=== PATIENT | female | born 1985 ===

== ENCOUNTER 2016-09-30 11:43 | Emergency (ER) | payer OTHER ==
[2016-09-30 11:51] VITALS: BP 106/60; PULSE 79; RESP 17; TEMP 97; O2SAT 99
--- NOTE | 2016-09-30 12:08 | ED PDOC ---
Lower Extremity Pain/Injury Time Seen by Provider: 09/30/16 12:03 Chief Complaint (Nursing): Lower Extremity Problem/Injury Chief Complaint (Provider): R toe pain History Per: Patient Additional Complaint(s): Pt. states for the past 3-4 weeks she's had a progressively worsening pain and swelling to the R pinky toe. Pt. states she has been unable to put on her shoes due to the swelling and that she also has pain with walking. Denies trauma, fever, discharge, numbness, tingling. Past Medical History Reviewed: Historical Data, Nursing Documentation, Vital Signs Vital Signs: Last Vital Signs Temp 97.0 F L 09/30/16 11:50 Pulse 79 09/30/16 11:50 Resp 17 09/30/16 11:50 BP 106/60 09/30/16 11:50 Pulse Ox 99 09/30/16 11:50 - Family History Family History: States: No Known Family Hx - Allergies Allergies/Adverse Reactions: Allergies Allergy/AdvReac Type Severity Reaction Status Date / Time No Known Allergies Allergy Verified 09/30/16 11:52 Review of Systems ROS Statement: Except As Marked, All Systems Reviewed And Found Negative Physical Exam - Physical Exam Appears: Positive for: Well, Non-toxic, No Acute Distress Skin: Positive for: Normal Color, Warm. Negative for: Rash Pulses-Dorsalis Pedis (R): 2+ Extremity: Positive for: Other (R 5th toe with mild swelling and fluctuance without erythema or discharge or tenderness; R 5th toe with cap refill < 2 seconds) Neurologic/Psych: Positive for: Alert, Oriented - ECG O2 Sat by Pulse Oximetry: 99 - Progress ED Course And Treament: Pt. evaluated by Christine podiatry resident, who debrided hammertoe and arranged f/ u for pt. with podiatry clinic in 1 week. Disposition - Clinical Impression Clinical Impression: Hammer toe - Patient ED Disposition Is Patient to be Admitted: No - Disposition Referrals: [facility] [Provider Group] Disposition: Routine/Home Disposition Time: 13:10 Condition: STABLE Additional Instructions: Follow up with [facility] pod[facility]ry clinic in 1 week without fail. Instructions: Adri (ED) Print Language: MALTESE
--- NOTE | 2016-09-30 12:38 | CP.PCM.CON ---
History of Present Illness - History of Present Illness History of Present Illness: 30 year old female with no PMHx presents to ED for pain in right 5th digit and right ankle. She states that she has had the pain in her right 5th digit for 3 months. She had previously seen a DrAlejandra who told her to elevate her foot, but had no relief. She admits to soaking her foot, also with no relief. She states it is painful in certain shoes. She also complaints that she twisted her ankle yesterday and has some pain. Denies n/v/f/c/sob/cp. [employer]zeri Interpretor Lola Hayes [id number] Past Patient History - Infectious Disease Hx of Infectious Diseases: None - Past Social History Smoking Status: Never Smoked - PSYCHIATRIC Hx Substance Use: No - SURGICAL HISTORY Hx Surgeries: No - ANESTHESIA Hx Anesthesia: No Meds Allergies/Adverse Reactions: Allergies Allergy/AdvReac Type Severity Reaction Status Date / Time No Known Allergies Allergy Verified 09/30/16 11:52 Physical Exam - Constitutional Appears: Well, Non-toxic, No Acute Distress - Extremities Exam Additional comments: Vasc:DP and PT pulses palpable 2/4 b/l. CFT < 3 seconds to all digits b/l. Mild non-pitting edema noted to right foot and ankle. Neuro:Gross sensation intact b/l. Derm: Hyperkeratotic lesion noted over dorsal aspect of right 5th digit. No open lesions, no drainage, no erythema, no malodor, no discharge, no fluctuance noted. Mild edema noted to right 5th digit. Ortho:Pain on palpation to right CFL, and ATFL. Pain on palpation to right 5th digit. Contracture noted to 5th digit b/l. - Neurological Exam Neurological exam: Alert, Oriented x3 - Psychiatric Exam Psychiatric exam: Normal Affect, Normal Mood Results - Vital Signs Recent Vital Signs: Last Vital Signs Temp 97.0 F L 09/30/16 11:50 Pulse 79 09/30/16 11:50 Resp 17 09/30/16 11:50 BP 106/60 09/30/16 11:50 Pulse Ox 99 09/30/16 12:08 Assessment & Plan - Assessment and Plan (Free Text) Assessment: 30 year old female with right 5th digit hammertoe with pain, and right ankle sprain Plan: Patient examined and evaluated Discussed in detail with attending, Dr. Caldera Chart and vitals reviewed Hyperkeratic tissue over 5th digit was excisionally debrided with #15 blade to healthy skin, without incident Right foot and ankle wrapped with STEVE Patient offered surgical shoe to walk in, patient refused surgical shoe Patient to follow up in Podiatry clinic next week, patient to call to schedule an appointment
== END 2016-09-30 13:29 | disposition home or self-care (01) ==
LOC: H.ER 11:43
DX: M20.41 Other hammer toe(s) (acquired), right foot (principal)

== ENCOUNTER 2016-11-15 15:01 | Observation (INO) | payer OTHER ==
[2016-11-15 15:10] VITALS: BP 99/65; PULSE 50; RESP 18; TEMP 98.4; O2SAT 100
[2016-11-15] MEDS ORDERED: Sodium Chloride 0.9% 1,000 ML IV STA (16:51)
[2016-11-15] MEDS ORDERED: Iohexol 240 (50 ml) PO STA (16:51)
[2016-11-15] MEDS ORDERED: Iohexol 240 (50 ml) ONE (17:09)
--- NOTE | 2016-11-15 17:10 | ED PDOC ---
HPI: Abdomen Time Seen by Provider: 11/15/16 16:23 Chief Complaint (Nursing): GI Problem Chief Complaint (Provider): Abdominal Pain History Per: Patient History/Exam Limitations: no limitations Onset/Duration Of Symptoms: Days (2 days) Outside of [place] travel?: No Current Symptoms Are (Timing): Still Present Severity: Moderate Location Of Pain/Discomfort: LLQ Associated Symptoms: Vomiting (3 episodes), Other (headache; denies photophobia , vision changes, neck stiffness, vaginal bleeding/discharge). denies: Fever, Diarrhea, Constipation, Urinary Symptoms (dysuria, hematuria, urinary frequency/ retention) Additional Complaint(s): Daniela De Anda is a 30 year old female, with no pertinent past medical history, who presents to the emergency department with complaints of abdominal pain, inclusive of 3 episodes of vomiting, that the patient has been experiencing for 2 days. Advil was taken last night to alleviate her pain, providing mild relief. Associated headache is currently present; however, patient states that it is not the worst of her life. Denies a fever, diarrhea, constipation, photophobia, vision changes, neck stiffness, dysuria, hematuria, urinary frequency/retention, or vaginal bleeding/discharge. Of note, patient's last known menstrual period was on 11/10/16. PMD: none specified Abnormal Vaginal Bleeding: No Last Menstral Period: 11/10/16 Past Medical History Reviewed: Historical Data, Nursing Documentation, Vital Signs Vital Signs: Last Vital Signs Temp 98.4 F 11/15/16 15:07 Pulse 50 L 11/15/16 15:07 Resp 18 11/15/16 15:07 BP 99/65 L 11/15/16 15:07 Pulse Ox 100 11/15/16 22:37 - Medical History PMH: No Chronic Diseases - Surgical History Surgical History: - Family History Family History: States: No Known Family Hx - Social History Current smoker - smoking cessation education provided: No Ex-Smoker (has not smoked in the last 12 months): No Alcohol: None Drugs: Denies - Home Medications Home Medications: Ambulatory Orders Medication Instructions Recorded Famotidine [Pepcid] 20 mg PO Q12 #14 tab 11/15/16 Ondansetron ODT [Zofran ODT] 4 mg PO Q6 PRN #16 odt 11/15/16 - Allergies Allergies/Adverse Reactions: Allergies Allergy/AdvReac Type Severity Reaction Status Date / Time No Known Allergies Allergy Verified 09/30/16 11:52 Review of Systems ROS Statement: Except As Marked, All Systems Reviewed And Found Negative Constitutional: Negative for: Fever Eyes: Negative for: Vision Change, Other (photophobia) Gastrointestinal: Positive for: Vomiting (3 episodes), Abdominal Pain. Negative for: Diarrhea, Constipation Genitourinary Female: Negative for: Dysuria, Frequency, Hematuria, Vaginal Discharge, Vaginal Bleeding, Other (urinary retention) Musculoskeletal: Negative for: Neck Pain (stiffness) Neurological: Positive for: Headache Physical Exam - Reviewed Nursing Documentation Reviewed: Yes Vital Signs Reviewed: Yes - Physical Exam Appears: Positive for: Non-toxic, No Acute Distress Head Exam: Positive for: ATRAUMATIC, NORMOCEPHALIC Skin: Positive for: Normal Color, Warm, DRY Eye Exam: Positive for: EOMI, Normal appearance, PERRL Neck: Positive for: Normal, Painless ROM, Supple Cardiovascular/Chest: Positive for: Regular Rate, Rhythm. Negative for: Murmur Respiratory: Positive for: Normal Breath Sounds. Negative for: Wheezing, Respiratory Distress Gastrointestinal/Abdominal: Positive for: Normal Exam, Soft, Tenderness ( generalized tenderness localizted to LLQ). Negative for: Guarding, Rebound Back: Positive for: Normal Inspection. Negative for: L CVA Tenderness, R CVA Tenderness Neurologic/Psych: Positive for: Alert, Oriented. Negative for: Motor/Sensory Deficits - Laboratory Results Result Diagrams: 11/15/16 17:30 11/15/16 17:30 - ECG O2 Sat by Pulse Oximetry: 100 (RA) Pulse Ox Interpretation: Normal Medical Decision Making Medical Decision Makin:23 Initial Impression: Abdominal pain Differential Diagnoses include, but are not limited to, appendicitis, an ovarian cyst, and a small bowel obstruction. Initial Plan: * CT Abd Pelvis w/ PO & IV Contrast * Transvaginal Ultrasound * Complete Blood Count * Comprehensive Metabolic Panel * Urine Dip * Urine * Urinalysis * Morphine 2 mg IV * Sodium Chloride 0.9% 1,000 ml IV at 1,000 mls/hr * Iohexol 50 ml PO * Zofran 4 mg IV * ED Observation * Reevaluation 16:52 Patient will be placed within ED Observation secondary to time-extensive ED workup. Pending CT Abd Pelvis and labs. See Observation note for further updates. 18:22 Patient is drinking contrast, awake, alert, oriented (x3), and comfortable. Scribe Attestation: Documented by Johnathan Mcelroy, acting as a scribe for Natasha Candelario MD. Provider Scribe Attestation: All medical record entries made by the Scribe were at my direction and personally dictated by me. I have reviewed the chart and agree that the record accurately reflects my personal performance of the history, physical exam, medical decision making, and the department course for this patient. I have also personally directed, reviewed, and agree with the discharge instructions and disposition. ED OBSERVATION Discharge: Yes Date of observation admission: 11/15/16 Time of observation admission: 16:52 - Observation admission statement Patient is being placed in observation because:: Patient will be placed within ED Observation secondary to time-extensive ED workup. - Goals of Observation Goals of observation are:: Pending CT Abd Pelvis and labs. Disposition - Clinical Impression Clinical Impression: Abdominal pain - Disposition Disposition: Transfer of Care Disposition Time: 19:00 Condition: STABLE Patient Signed Over To: Jose Collado Handoff Comments: Pending CT and ultrasound.
[2016-11-15 17:40] LABS: RBC URINE 268 /hpf (0-3); URINE BACTERIA RARE (<OCC); URINE BILIRUBIN NEGATIVE (NEGATIVE); URINE BLOOD LARGE (NEGATIVE); URINE COLOR STRAW (YELLOW); URINE GLUCOSE (UA) NEG (Normal); URINE KETONE NEGATIVE (NEGATIVE); URINE LEUKOCYTE ESTERASE SMALL Leu/uL (Negative); URINE PROTEIN NEGATIVE (NEGATIVE); URINE UROBILINOGEN 0.2-1.0 mg/dL (0.2-1.0); WBC URINE 4 /hpf (0-5)
[2016-11-15 17:43] LABS: BASO % 0.2 % (0.0-2.0); EOS % 0.1 % (0.0-4.0); HEMATOCRIT 34.9 % (34.0-47.0); LYMPH % 20.8 % (20.0-40.0); MEAN CELL VOLUME 82.1 fl (81.0-99.0); MEAN CORPUSCULAR HEMOGLOBIN 26.5 pg (27.0-31.0); MEAN CORPUSCULAR HGB CONC 32.3 g/dL (33.0-37.0); MEAN PLATELET VOLUME 8.7 fl (7.2-11.7); MONO # 0.3 K/uL (0.0-0.8); MONO % 2.7 % (0.0-10.0); NEUT # 7.5 K/uL (1.8-7.0); NEUT % 76.2 % (50.0-75.0); WHITE BLOOD COUNT 9.8 K/uL (4.8-10.8)
[2016-11-15 18:07] LABS: ALB/GLOB RATIO 1.2 (1.0-2.1); ALKALINE PHOSPHATASE 65 U/L (38-126); ALT/SGPT 21 U/L (9-52); AST/SGOT 21 U/L (14-36); BILIRUBIN,TOTAL 0.7 mg/dl (0.2-1.3); BLOOD UREA NITROGEN 7 mg/dl (7-17); CALCIUM 9.3 mg/dL (8.4-10.2); CARBON DIOXIDE 23 mmol/L (22-30); CHLORIDE 104 mmol/L (98-107); GFR AFRICAN-AMERICAN > 60; GLUCOSE,RANDOM 108 mg/dL (65-105); POTASSIUM 3.8 MMOL/L (3.6-5.0); SODIUM 138 mmol/l (132-148); TOTAL PROTEIN 7.9 G/DL (6.3-8.2)
[2016-11-15] MEDS ORDERED: Iohexol 300 50 ML ONE (19:23)
[2016-11-15] MEDS ORDERED: Sodium Chloride 0.9% 50 ML IV ONE (19:24)
--- NOTE | 2016-11-15 19:25 | ED PDOC ---
- Laboratory Results Result Diagrams: 11/15/16 17:30 11/15/16 17:30 - ECG O2 Sat by Pulse Oximetry: 100 (RA) Pulse Ox Interpretation: Normal - CT Scan/US CT Abd Pelvis Other Rad Studies (CT/US): Interpreted By Me, Read By Radiologist, Radiology Report Reviewed Transvaginal US Other Rad Studies (CT/US): Interpreted By Me, Read By Radiologist, Radiology Report Reviewed Medical Decision Making Medical Decision Makin:00 Patient transferred over to provider from Natasha Candelario MD. Pending CT Abd Pelvis and Transvaginal Ultrasound. 20:24 CT Abd Pelvis Results FINDINGS: Artifacts: Motion artifact degrades image quality. Lower thorax: Heart size is normal. The lung bases are clear. ABDOMEN: Liver: There is fatty infiltration of the liver. Gallbladder and bile ducts: Unremarkable. Pancreas: Unremarkable. Spleen: Unremarkable. Adrenals: Unremarkable. Kidneys and ureters: Unremarkable. Stomach and bowel: Stomach is almost empty. Rotation is normal. There is no obstruction. Terminal ileum is unremarkable. Appendix is unremarkable. Streak and motion limited evaluation of the colon. There is minimal diverticulosis. Appendix: See stomach and bowel. PELVIS: Bladder: Unremarkable. Reproductive: Uterus and adnexal structures are unremarkable. ABDOMEN and PELVIS: Intraperitoneal space: There is trace free fluid in the pelvis. There is no free air. Bones/joints: There are no acute osseous abnormalities. There is mild L5-S1 disc bulging. Soft tissues: There is a small fat containing umbilical hernia. Vasculature: Vascular structures are unremarkable. Lymph nodes: There is no pathologic adenopathy. IMPRESSION: Fatty liver, no acute solid visceral abnormality; no CT findings of appendicitis or diverticulitis; trace fluid in the pelvis most likely physiologic. 20:52 Patient is resting comfortably with stable vital signs. 20:58 Transvaginal Ultrasound Results FINDINGS: Uterus: Uterus measures approximately 6.7 x 3 x 4.6 cm. Endometrium measures approximately 3.4 mm in width. Fluid: There is trace amount of free fluid. Left ovary: Left ovary measures approximately 2.87 x 1.58 x 1.48 cm. There are multiple small follicles. There is intraovarian blood flow. Right ovary: Right ovary measures approximately 2.81 x 1.58 x 2.28 cm.There are multiple small follicles. There is intraovarian blood flow. IMPRESSION: Normal transvaginal pelvic ultrasound, no torsion; trace free fluid is most likely physiologic. 22:29 Upon provider reevaluation, patient shows improvement in her symptoms, is medically stable, and requires no further treatment in the emergency department at this time. Patient will be discharged home with a prescription for Pepcid and Zofran ODT. Counseling was provided and all questions were answered regarding diagnosis and advised for followup with primary medical doctor in 1-2 days. Patient is in agreement with provider's discharge plan and was prompted to return if their symptoms persist or worsen. Clinical Impression: Gastritis Scribe Attestation: Documented by Johnathan Mcelroy, acting as a scribe for Jose Collado MD. Provider Scribe Attestation: All medical record entries made by the Scribe were at my direction and personally dictated by me. I have reviewed the chart and agree that the record accurately reflects my personal performance of the history, physical exam, medical decision making, and the department course for this patient. I have also personally directed, reviewed, and agree with the discharge instructions and disposition. Disposition - Clinical Impression Clinical Impression: Gastritis - POA Present On Arrival: None - Disposition Disposition: Routine/Home Disposition Time: 22:29 Condition: STABLE
--- NOTE | 2016-11-15 20:25 | CT ---
EXAM: CT Abdomen and Pelvis With Intravenous Contrast CLINICAL HISTORY: 30 years old, female; Pain; Abdominal pain; Generalized; Prior surgery; Surgery date: 6+ months; Surgery type: 3 c/sections. Tubal ligation; Additional info: Gen abd pain, >llq, vomiting TECHNIQUE: Axial computed tomography images of the abdomen and pelvis with intravenous contrast. This CT exam was performed using one or more of the following dose reduction techniques: automated exposure control, adjustment of the mA and/or kV according to patient size, and/or use of iterative reconstruction technique. Coronal and sagittal reformatted images were created and reviewed. CONTRAST: 90 mL of administered intravenously. EXAM DATE/TIME: 11/15/2016 4:51 PM COMPARISON: There are no prior studies for comparison. FINDINGS: Artifacts: Motion artifact degrades image quality. Lower thorax: Heart size is normal. The lung bases are clear. ABDOMEN: Liver: There is fatty infiltration of the liver. Gallbladder and bile ducts: unremarkable Pancreas: unremarkable Spleen: unremarkable Adrenals: unremarkable Kidneys and ureters: unremarkable Stomach and bowel: Stomach is almost empty. Rotation is normal. There is no obstruction. Terminal ileum is unremarkable. Appendix is unremarkable. Streak and motion limited evaluation of the colon. There is minimal diverticulosis. Appendix: See stomach and bowel PELVIS: Bladder: unremarkable Reproductive: Uterus and adnexal structures are unremarkable. ABDOMEN and PELVIS: Intraperitoneal space: There is trace free fluid in the pelvis. There is no free air. Bones/joints: There are no acute osseous abnormalities. There is mild L5-S1 disc bulging. Soft tissues: There is a small fat containing umbilical hernia. Vasculature: Vascular structures are unremarkable. Lymph nodes: There is no pathologic adenopathy. IMPRESSION: Fatty liver, no acute solid visceral abnormality; no CT findings of appendicitis or diverticulitis; trace fluid in the pelvis most likely physiologic
--- NOTE | 2016-11-16 13:49 | US ---
HISTORY: BLQ pain, L>R COMPARISON: None available. TECHNIQUE: Transvaginal pelvic ultrasound was performed. FINDINGS: UTERUS: Measures 6.6 x 3.0 x 4.4 cm. Retroverted, normal in size and appearance. No fibroid or other mass lesion seen. ENDOMETRIUM: Measures 3 mm in diameter. Normal in appearance. CERVIX: No cervical abnormality identified. RIGHT OVARY: Measures 2.8 x 1.5 x 2.2 cm. No solid mass. Normal flow. LEFT OVARY: Measures 2.8 x 1.5 x 1.4 cm. No solid mass. Normal flow. FREE FLUID: There is trace free fluid in the pelvis, likely physiologic. OTHER FINDINGS: None. IMPRESSION: Normal pelvic ultrasound.
== END 2016-11-15 22:39 | disposition home or self-care (01) ==
LOC: H.ER 15:01 → H.EROBSV 16:52
PROVIDERS: ADMIT Emergency Medicine; ATTEND Emergency Medicine
DX: K29.70 Gastritis, unspecified, without bleeding (principal); K76.0 Fatty (change of) liver, not elsewhere classified

== ENCOUNTER 2017-06-09 23:12 | Emergency (ER) | payer SELFPAY ==
[2017-06-09 23:35] VITALS: BP 102/67; PULSE 76; RESP 16; TEMP 99; O2SAT 100
[2017-06-09] MEDS ORDERED: Albuterol-Ipratrop 3 mg / 0.5 (3 ml) UD IH STA (23:59)
--- NOTE | 2017-06-10 00:02 | ED PDOC ---
HPI: CCC, URI, Sore Throat Time Seen by Provider: 06/09/17 23:42 Chief Complaint (Nursing): Cough, Cold, Congestion Chief Complaint (Provider): cold symptoms History Per: Patient History/Exam Limitations: no limitations Onset/Duration Of Symptoms: Days (1 week) Current Symptoms Are (Timing): Still Present Associated Symptoms: Chills, Cough, Nasal Congestion Additional History Per: Patient Additional Complaint(s): 31 y/o female presents with cold-symptoms x 1 week. Patient notes nasal congestion, productive cough, eye irritation. No relief with nyquil. Denies fever, neck pain, nausea/vomiting, chest pain, shortness of breath, palpitations , abdominal pain, recent travel, sick contacts. Past Medical History Reviewed: Historical Data, Nursing Documentation, Vital Signs Vital Signs: Last Vital Signs Temp 99.0 F 06/09/17 23:31 Pulse 76 06/09/17 23:31 Resp 16 06/09/17 23:31 BP 102/67 06/09/17 23:31 Pulse Ox 100 06/10/17 00:02 - Medical History PMH: No Chronic Diseases - Surgical History Surgical History: - Family History Family History: States: No Known Family Hx - Social History Current smoker - smoking cessation education provided: No - Home Medications Home Medications: Ambulatory Orders Medication Instructions Recorded Famotidine [Pepcid] 20 mg PO Q12 #14 tab 11/15/16 Ondansetron ODT [Zofran ODT] 4 mg PO Q6 PRN #16 odt 11/15/16 Fluticasone Nasal [Flonase] 1 actuation NS BID #1 bottle 06/10/17 Guaifenesin/Pseudoephedrne HCl 1 tab PO Q12 #10 tab 06/10/17 [Mucinex D ER 1,200-120 mg Tab] Polymyxin/Trimethoprim Sulfate 1 drop OU QID #1 bottle 06/10/17 [Polytrim Ophth Soln] - Allergies Allergies/Adverse Reactions: Allergies Allergy/AdvReac Type Severity Reaction Status Date / Time No Known Allergies Allergy Verified 09/30/16 11:52 Review of Systems ROS Statement: Except As Marked, All Systems Reviewed And Found Negative Eyes: Positive for: Redness ENT: Positive for: Nose Congestion Respiratory: Positive for: Cough Physical Exam - Reviewed Nursing Documentation Reviewed: Yes Vital Signs Reviewed: Yes - Physical Exam Appears: Positive for: Well, Non-toxic, No Acute Distress Head Exam: Positive for: ATRAUMATIC, NORMAL INSPECTION, NORMOCEPHALIC Skin: Positive for: Normal Color Eye Exam: Positive for: EOMI, PERRL, Conjunctival injection (bilateral; prurulent drainage noted left medial eye). Negative for: Periorbital swelling, Periorbital tenderness ENT: Positive for: Nasal Congestion Cardiovascular/Chest: Positive for: Regular Rate, Rhythm Respiratory: Positive for: Normal Breath Sounds Gastrointestinal/Abdominal: Positive for: Normal Exam Back: Positive for: Normal Inspection Extremity: Positive for: Normal ROM Neurologic/Psych: Positive for: Alert, Oriented - ECG O2 Sat by Pulse Oximetry: 100 - Radiology X-Ray: Viewed By Ms X-Ray Interpretation: No Acute Disease - Progress ED Course And Treament: flu, chest xray, ibuprofen Patient educated on findings, discharged with rx polytrim, flonase, mucinex D Advised fluids, rest. Follow up PMD 2-3 days. Return precautions givne. Disposition - Clinical Impression Clinical Impression: Conjunctivitis, Upper respiratory infection - Patient ED Disposition Is Patient to be Admitted: No Counseled Patient/Family Regarding: Studies Performed, Diagnosis, Need For Followup, Rx Given - Disposition Referrals: [facility] [place] [Outside] Disposition: Routine/Home Disposition Time: 02:39 Condition: IMPROVED Prescriptions: Fluticasone Nasal [Flonase] 1 actuation NS BID #1 bottle Guaifenesin/Pseudoephedrne HCl [Mucinex D ER 1,200-120 mg Tab] 1 tab PO Q12 #10 tab Polymyxin/Trimethoprim Sulfate [Polytrim Ophth Soln] 1 drop OU QID #1 bottle Instructions: Upper Respiratory Infection (ED), Conjunctivitis (ED) Forms: [employer] (Algerian), [facility] ED School/Work Excuse Print Language: PARAGUAYAN
[2017-06-10] MEDS ORDERED: Albuterol-Ipratrop 3 mg / 0.5 (3 ml) UD ONE (00:17)
--- NOTE | 2017-06-10 08:16 | RAD ---
HISTORY: cough, congestion COMPARISON: None available. TECHNIQUE: Chest PA and lateral FINDINGS: LUNGS: No active pulmonary disease. PLEURA: No significant pleural effusion identified. No pneumothorax apparent. CARDIOVASCULAR: Normal. OSSEOUS STRUCTURES: No significant abnormalities. VISUALIZED UPPER ABDOMEN: Normal. OTHER FINDINGS: None. IMPRESSION: No acute cardiopulmonary disease appreciated.
== END 2017-06-10 03:10 | disposition home or self-care (01) ==
LOC: H.ER 23:12
DX: J06.9 Acute upper respiratory infection, unspecified (principal); H10.9 Unspecified conjunctivitis

== ENCOUNTER 2017-07-16 13:00 | Emergency (ER) | payer SELFPAY ==
[2017-07-16 13:52] VITALS: BP 107/77; PULSE 75; RESP 16; TEMP 98; O2SAT 99
--- NOTE | 2017-07-16 14:26 | ED PDOC ---
HPI: Dental Pain/Injury Chief Complaint (Provider): Toothache History Per: Patient Additional Complaint(s): 31 yo female, PMH of HTN, right face +swelling. upper mouth pain x 2 days. no fever or chills. Pt also would like test <PrashanthOpal jimenez Gregory - Last Filed: 07/16/17 15:56> <Abdiaziz Estrada - Last Filed: 07/16/17 16:14> Time Seen by Provider: 07/16/17 13:49 Chief Complaint (Nursing): Dental Pain Past Medical History Reviewed: Nursing Documentation, Vital Signs Vital Signs: Last Vital Signs Temp 98 F 07/16/17 13:49 Pulse 75 07/16/17 13:49 Resp 16 07/16/17 13:49 BP 107/77 07/16/17 13:49 Pulse Ox 99 07/16/17 13:49 - Medical History PMH: HTN Denies: Chronic Kidney Disease - Surgical History Surgical History: - Family History Family History: States: No Known Family Hx - Living Arrangements Living Arrangements: With Family - Social History Current smoker - smoking cessation education provided: No Alcohol: None Drugs: Denies <PrashanthOpal jimenez Gregory - Last Filed: 07/16/17 15:56> Vital Signs: Last Vital Signs Temp 98 F 07/16/17 13:49 Pulse 75 07/16/17 13:49 Resp 16 07/16/17 13:49 BP 107/77 07/16/17 13:49 Pulse Ox 99 07/16/17 15:58 <Abdiaziz Estrada - Last Filed: 07/16/17 16:14> - Home Medications Home Medications: Ambulatory Orders Medication Instructions Recorded Famotidine [Pepcid] 20 mg PO Q12 #14 tab 11/15/16 Ondansetron ODT [Zofran ODT] 4 mg PO Q6 PRN #16 odt 11/15/16 Fluticasone Nasal [Flonase] 1 actuation NS BID #1 bottle 06/10/17 Guaifenesin/Pseudoephedrne HCl 1 tab PO Q12 #10 tab 06/10/17 [Mucinex D ER 1,200-120 mg Tab] Polymyxin/Trimethoprim Sulfate 1 drop OU QID #1 bottle 06/10/17 [Polytrim Ophth Soln] Ibuprofen [Motrin] 600 mg PO Q6 #20 tab 07/16/17 Penicillin VK [Penicillin VK Tab] 500 mg PO BID 7 Days tab 07/16/17 oxyCODONE/Acetaminophen [Percocet 1 ea PO Q6 PRN #5 tab 07/16/17 5/325 mg Tab] - Allergies Allergies/Adverse Reactions: Allergies Allergy/AdvReac Type Severity Reaction Status Date / Time No Known Allergies Allergy Verified 09/30/16 11:52 Review of Systems ROS Statement: Except As Marked, All Systems Reviewed And Found Negative ENT: Positive for: Other (toothache) <Opal Yoon - Last Filed: 07/16/17 15:56> Physical Exam - Reviewed Nursing Documentation Reviewed: Yes Vital Signs Reviewed: Yes - Physical Exam Appears: Positive for: Well, Non-toxic, No Acute Distress Head Exam: Positive for: ATRAUMATIC, NORMAL INSPECTION, NORMOCEPHALIC Skin: Positive for: Normal Color, Warm, DRY Eye Exam: Positive for: EOMI, Normal appearance, PERRL ENT: Positive for: Other (right sided maxillary tenderness, no edema or erythema. dentition appears well. no edema to gumline) Neck: Positive for: Normal, Painless ROM Cardiovascular/Chest: Positive for: Regular Rate, Rhythm Respiratory: Positive for: CNT, Normal Breath Sounds Gastrointestinal/Abdominal: Positive for: Normal Exam, Bowel Sounds, Soft Back: Positive for: Normal Inspection Extremity: Positive for: Normal ROM Neurologic/Psych: Positive for: Alert, Oriented <Opal Yoon - Last Filed: 07/16/17 15:56> - ECG O2 Sat by Pulse Oximetry: 99 <Opal Yoon - Last Filed: 07/16/17 15:56> Medical Decision Making Medical Decision Making: Preg (-) Acetaminophen Po administered, as well as PCN VK pt reports doing well on re-eval, asking to go home <Opal Yoon - Last Filed: 07/16/17 15:56> Disposition - Patient ED Disposition Is Patient to be Admitted: No - Disposition Disposition: Routine/Home Disposition Time: 15:56 <KarrieOpal Jenkins - Last Filed: 07/16/17 15:56> <Abdiaziz Estrada - Last Filed: 07/16/17 16:14> - Clinical Impression Clinical Impression: Dental abscess - Disposition Condition: STABLE Prescriptions: Ibuprofen [Motrin] 600 mg PO Q6 #20 tab oxyCODONE/Acetaminophen [Percocet 5/325 mg Tab] 1 ea PO Q6 PRN #5 tab PRN Reason: Pain, Severe (8-10) Penicillin VK [Penicillin VK Tab] 500 mg PO BID 7 Days tab Instructions: Dental Abscess (ED) Forms: [facility] ([place]), [facility] ED School/Work Excuse
== END 2017-07-16 15:55 | disposition home or self-care (01) ==
LOC: H.ER 13:00
DX: K04.7 Periapical abscess without sinus (principal); I10 Essential (primary) hypertension

== ENCOUNTER 2017-08-12 11:58 | Emergency (ER) | payer SELFPAY ==
[2017-08-12 12:14] VITALS: RESP 16
[2017-08-12] MEDS ORDERED: Albuterol-Ipratrop 3 mg / 0.5 (3 ml) UD INH STA ×2 (14:06→14:08)
[2017-08-12] MEDS ORDERED: guaiFENesin 100 mg/5 ml Syrup UD PO STA (14:06)
--- NOTE | 2017-08-12 14:09 | ED PDOC ---
HPI: CCC, URI, Sore Throat Time Seen by Provider: 08/12/17 12:55 Chief Complaint (Nursing): Flu-like Symptoms Chief Complaint (Provider): cough History Per: Patient, Resource Manager (shelley Sutton #[id number]) History/Exam Limitations: no limitations Have you had recent travel within the past 21 days to any of the following countries: [place], [place], [place] or [place]?: No Onset/Duration Of Symptoms: Days (x3) Current Symptoms Are (Timing): Still Present Sick Contacts (Context): None Associated Symptoms: Nasal Congestion Ear Symptoms: Bilateral: None Additional Complaint(s): 31 year old female with medical history of hypertension, presents to the emergency department with a complaint of cough associated with tactile fever, intermittent shortness of breath, nasal congestion, decreased appetite, global headache, and upper back pain ongoing for the past 3 days. Denies any vomiting, abdominal pain, diarrhea, ear pain, sore throat, recent travel, or sick contacts. Patient reported taking Nyquil last night for symptoms, but no medications today. PMD: none provided Past Medical History Reviewed: Historical Data, Nursing Documentation, Vital Signs Vital Signs: Last Vital Signs Temp 98.3 F 08/12/17 15:46 Pulse 93 H 08/12/17 15:46 Resp 16 08/12/17 15:46 BP 99/58 L 08/12/17 15:46 Pulse Ox 99 08/12/17 15:46 - Medical History PMH: HTN Denies: No Chronic Diseases, Asthma, Diabetes, Chronic Kidney Disease - Surgical History Surgical History: - Family History Family History: States: Unknown Family Hx - Social History Current smoker - smoking cessation education provided: No Alcohol: None Drugs: Denies - Home Medications Home Medications: Ambulatory Orders Medication Instructions Recorded Famotidine [Pepcid] 20 mg PO Q12 #14 tab 11/15/16 Ondansetron ODT [Zofran ODT] 4 mg PO Q6 PRN #16 odt 11/15/16 Fluticasone Nasal [Flonase] 1 actuation NS BID #1 bottle 06/10/17 Guaifenesin/Pseudoephedrne HCl 1 tab PO Q12 #10 tab 06/10/17 [Mucinex D ER 1,200-120 mg Tab] Polymyxin/Trimethoprim Sulfate 1 drop OU QID #1 bottle 06/10/17 [Polytrim Ophth Soln] Ibuprofen [Motrin] 600 mg PO Q6 #20 tab 07/16/17 Penicillin VK [Penicillin VK Tab] 500 mg PO BID 7 Days tab 07/16/17 oxyCODONE/Acetaminophen [Percocet 1 ea PO Q6 PRN #5 tab 07/16/17 5/325 mg Tab] Albuterol HFA [Ventolin HFA 90 1 puff IH Q4 #1 inhaler 08/12/17 mcg/actuation (8 g)] Ibuprofen [Motrin Tab] 600 mg PO TID PRN #20 tab 08/12/17 Promethazine DM [Phenergan DM 5 ml PO Q6 PRN #200 ml 08/12/17 Syrup] - Allergies Allergies/Adverse Reactions: Allergies Allergy/AdvReac Type Severity Reaction Status Date / Time No Known Allergies Allergy Verified 09/30/16 11:52 Review of Systems ROS Statement: Except As Marked, All Systems Reviewed And Found Negative Constitutional: Positive for: Fever (tactile) Eyes: Negative for: Vision Change ENT: Positive for: Nose Congestion. Negative for: Ear Pain, Throat Pain Cardiovascular: Negative for: Light Headedness Respiratory: Positive for: Cough, Shortness of Breath Gastrointestinal: Positive for: Other (decreased appetite). Negative for: Vomiting, Abdominal Pain, Diarrhea Genitourinary Female: Negative for: Dysuria Musculoskeletal: Positive for: Back Pain Skin: Negative for: Rash Neurological: Positive for: Headache Physical Exam - Reviewed Nursing Documentation Reviewed: Yes Vital Signs Reviewed: Yes - Physical Exam Appears: Positive for: Well, Non-toxic, No Acute Distress Head Exam: Positive for: ATRAUMATIC, NORMOCEPHALIC Skin: Positive for: Normal Color, Warm, Dry. Negative for: Diaphoresis, Rash Eye Exam: Positive for: EOMI, PERRL. Negative for: Nystagmus, Conjunctival injection ENT: Positive for: Pharynx Is (clear, uvula midline), TM Is/Are ((-) erythema (- ) bulging), Nasal Congestion. Negative for: Pharyngeal Erythema Neck: Positive for: Painless ROM, Supple Cardiovascular/Chest: Positive for: Regular Rate, Rhythm. Negative for: Bradycardia, Tachycardia Respiratory: Positive for: Normal Breath Sounds (speaking in full sentences, respirations even and nonlabored.), Accessory Muscle Use. Negative for: Decreased Breath Sounds, Respiratory Distress Gastrointestinal/Abdominal: Positive for: Normal Exam, Soft. Negative for: Tenderness Back: Negative for: L CVA Tenderness, R CVA Tenderness Extremity: Positive for: Normal ROM (upper/lower). Negative for: Deformity ( upper/lower) Neurologic/Psych: Positive for: Alert, Oriented, Gait (steady). Negative for: Aphasia, Facial Droop - ECG O2 Sat by Pulse Oximetry: 97 (RA) Pulse Ox Interpretation: Normal Medical Decision Making Medical Decision Making: Initial Impression: Cough Initial Plan: * CXR * Duoneb 3ml INH * Robitussin 200mg * Toradol 30mg IM Time: 1506 --Tylenol 650mg PO ordered for fever. --CXR FINDINGS: LINES AND TUBES: None. LUNG AND PLEURA: The lungs are well inflated and clear. HEART AND MEDIASTINUM: The heart is not enlarged. The hilar and mediastinal contours are within normal limits. SKELETAL STRUCTURES: There is an S-shaped scoliosis in the thoracolumbar spine. VISUALIZED UPPER ABDOMEN: Normal. OTHER FINDINGS: None. IMPRESSION: No active pulmonary disease. Time: 0515 --Upon provider reevaluation, patient is medically stable and requires no further treatment in the ED at this time. Repeat temp: 98.3 oral, VSS. Provider explained to patient the ineffectiveness of Tamiflu at present time due to symptom duration. Advised rest and fluid. Patient will be discharged home with Rx for Ventolin HFA, Motrin 600mg and Phenergan DM. Counseling was provided and all questions were answered regarding diagnosis and need for follow up with PMD. There is agreement to discharge plan. Return if symptoms persist or worsen. Clinical Impression: Viral respiratory infection; cough; fever Scribe Attestation: Documented by Katie Higgins, acting as a scribe for Pepper Bettencourt PA-C. Provider Scribe Attestation: All medical record entries made by the Scribe were at my direction and personally dictated by me. I have reviewed the chart and agree that the record accurately reflects my personal performance of the history, physical exam, medical decision making, and the department course for this patient. I have also personally directed, reviewed, and agree with the discharge instructions and disposition. Disposition - Clinical Impression Clinical Impression: Cough, Fever, Viral respiratory infection - Patient ED Disposition Is Patient to be Admitted: No Counseled Patient/Family Regarding: Studies Performed, Diagnosis - Disposition Referrals: [facility] [Outside] Disposition: Routine/Home Disposition Time: 15:15 Condition: STABLE Prescriptions: Albuterol HFA [Ventolin HFA 90 mcg/actuation (8 g)] 1 puff IH Q4 #1 inhaler Ibuprofen [Motrin Tab] 600 mg PO TID PRN #20 tab PRN Reason: Fever >100.4 F Promethazine DM [Phenergan DM Syrup] 5 ml PO Q6 PRN #200 ml PRN Reason: Cough Instructions: Cough in Adults, Viral Upper Respiratory Infection, Adult (DC), Cough, Runny Nose, and the Common Cold (DC), Fever, Adult (DC) Forms: [facility] (Upper Sorbian) Print Language: CUBAN
[2017-08-12] MEDS ORDERED: guaiFENesin 100 mg/5 ml Syrup UD ONE (14:22)
--- NOTE | 2017-08-12 15:08 | RAD ---
HISTORY: COMPARISON: 06/10/2017. TECHNIQUE: Chest PA and lateral FINDINGS: LINES AND TUBES: None. LUNG AND PLEURA: The lungs are well inflated and clear. HEART AND MEDIASTINUM: The heart is not enlarged. The hilar and mediastinal contours are within normal limits. SKELETAL STRUCTURES: There is an S-shaped scoliosis in the thoracolumbar spine. VISUALIZED UPPER ABDOMEN: Normal. OTHER FINDINGS: None. IMPRESSION: No active pulmonary disease.
[2017-08-12 15:47] VITALS: BP 99/58; PULSE 93; TEMP 98.3
[2017-08-12 19:18] VITALS: O2SAT 97
== END 2017-08-12 15:59 | disposition home or self-care (01) ==
LOC: H.ER 11:58
DX: J06.9 Acute upper respiratory infection, unspecified (principal); I10 Essential (primary) hypertension
CPT/HCPCS: 71046; 81025; 94640; 96372; 99282; J1885